=== PATIENT | female | born 1995 | race American Indian/Alaskan Native ===

== ENCOUNTER 2021-02-26 18:11 | Observation (INO) | payer MEDICAID ==
[2021-02-26 19:25] LABS: Bilirubin,Urine NEG (Negative); Blood,Urine NEG (Negative); Color,Urine Yellow (Yellow); Protein,Urine <15 mg/dL mg/dL (Negative); Urobilinogen,Urine < 2.0 mg/dL (<2.0)
[2021-02-26] MEDS ORDERED: LACTATED RINGERS 1,000 ML IV ONE (19:30)
[2021-02-26] MEDS ORDERED: ACETAMINOPHEN 325 MG TAB PO PRN (20:54)
[2021-02-26] MEDS ORDERED: LACTATED RINGERS 1,000 ML IV SCH (21:00)
[2021-02-26] MEDS ORDERED: D5W/LACTATED RINGERS 1,000 ML IV SCH (21:00)
[2021-02-26] MEDS: BUTORPHANOL 2 MG/1 ML INJ IV PRN (21:38)
[2021-02-27] MEDS: BUTORPHANOL 2 MG/1 ML INJ IV PRN ×2 (02:15→07:35)
--- NOTE | 2021-02-27 06:21 | History and Physical Report ---
History of Present Illness Date of examination: 02/27/21 Date of admission: 02/26/21 20:58 Chief complaint: Patient presented overnite with contractions at 37+1 wks. Recently relocated from [place] and medical records are available. History of present illness: , 37+2 wks, TRISHA 03/18/2021. Past History Past Medical History: no pertinent history - Obstetrical History Expected Date of Delivery: 03/18/21 Actual Gestation: 37 Week(s) 2 Day(s) : 1 Para: 0 Medications and Allergies Allergies Allergy/AdvReac Type Severity Reaction Status Date / Time No Known Allergies Allergy Unverified 02/26/21 18:29 Home Medications Medication Instructions Recorded Confirmed Last Taken Type Iron 1 tab PO QDAY 02/26/21 02/26/21 02/26/21 10:00 History Vitamin 1 tab PO QDAY 02/26/21 02/26/21 02/26/21 10:00 History Active Meds: Active Medications Acetaminophen (Acetaminophen 325 Mg Tab) 650 mg PO Q4H PRN PRN Reason: Pain MILD(1-3)/Fever >100.5/LYONS Butorphanol Tartrate (Butorphanol 2 Mg/1 Ml Inj) 2 mg IV Q4H PRN PRN Reason: Labor Pain Last Admin: 02/27/21 02:15 Dose: 2 mg Documented by: Lactated Ringer's (Lactated Ringers) 1,000 mls @ 125 mls/hr IV DIRECT KARISSA Review of Systems All systems: negative Genitourinary: no leakage of fluid - Vital Signs Vital signs: Vital Signs Temp Pulse Resp BP 98.4 F 101 H 20 114/68 02/26/21 18:35 02/26/21 18:35 02/26/21 18:35 02/26/21 18:35 Temp Pulse Resp BP Pulse Ox 98.2 F 94 H 18 103/59 94 02/26/21 21:49 02/26/21 23:25 02/27/21 03:15 02/26/21 21:49 02/26/21 23:25 - Physical Exam Breasts: Positive: deferred Lungs: Positive: Normal air movement Abdomen: Positive: normal appearance, distention Genitourinary (Female): Positive: normal external genitalia, normal perenium Vulva: both: normal Uterus: Positive: enlarged Deep Tendon Reflex Grade: Normal +2 - Obstetrical FHR: category 2 Uterine Contraction Monitor Mode: External Cervical Dilatation: 2.5 Cervical Effacement Percentage: 80 station: 0 Uterine Contraction Frequency (min): irregular Uterine Contraction Pattern: Irregular Uterine Contraction Intensity: Strong/Firm Results All other labs normal. Assessment and Plan - Patient Problems (1) with 37 weeks completed gestation Current Visit: Yes Status: Acute Plan to address problem: Under observation for possible progression to labor.
[2021-02-27 13:20] VITALS: BP 110/78
== END 2021-02-27 13:23 | disposition home or self-care (01) ==
LOC: TRG 18:11 → APU 18:21 → LD 20:58 → TRG 20:58
PROVIDERS: ADMIT Obstetrics & Gynecology; ATTEND Obstetrics & Gynecology
DX: O62.9 Abnormality of forces of labor, unspecified (principal); Z20.822 Contact with and (suspected) exposure to COVID-19; Z3A.37 37 weeks gestation of pregnancy
CPT/HCPCS: 81001; 96374; 96376; G0378; J0595; U0003

== ENCOUNTER 2021-03-11 13:07 | Inpatient (IN) | payer MEDICAID ==
[2021-03-11] MEDS ORDERED: ePHEDrine SULFATE 50 MG/1 ML INJ IV PRN ×2 (13:34→13:59)
[2021-03-11] MEDS ORDERED: OXYTOCIN 10 UNIT/1 ML INJ IM PRN (13:34)
[2021-03-11] MEDS ORDERED: LOPERAMIDE 2 MG CAP PO PRN (13:34)
[2021-03-11] MEDS ORDERED: miSOPROStol 200 MCG TAB PR PRN (13:34)
[2021-03-11] MEDS ORDERED: CARBOPROST TROMETHAMINE 250 MCG/1 ML INJ IM PRN (13:34)
[2021-03-11] MEDS ORDERED: MINERAL OIL 30 ML ORAL LIQD PO PRN (13:34)
[2021-03-11] MEDS ORDERED: TERBUTALINE 1 MG/1 ML INJ SUB-Q PRN (13:34)
[2021-03-11] MEDS ORDERED: METHYLERGONOVINE MALEATE 0.2 MG/ML VIAL IM PRN (13:34)
[2021-03-11] MEDS ORDERED: fentaNYL 100 MCG/2 ML INJ IV PRN (13:42)
[2021-03-11] MEDS ORDERED: BUTORPHANOL 2 MG/1 ML INJ IV PRN ×2 (13:42)
[2021-03-11] MEDS ORDERED: ACETAMINOPHEN 325 MG TAB PO PRN ×2 (13:42→21:30)
[2021-03-11] MEDS ORDERED: NALOXONE 2 MG/2 ML INJ IV PRN (13:59)
--- NOTE | 2021-03-11 13:59 | Anesthesia Consultation ---
Anesthesia Consult and Med Hx Date of service: 03/11/21 - Airway Anesthetic Teeth Evaluation: Good ROM Head & Neck: Adequate Mental/Hyoid Distance: Adequate Mallampati Class: Class II Intubation Access Assessment: Good - Pulmonary Exam CTA: Yes - Cardiac Exam Cardiac Exam: RRR - Pre-Operative Health Status ASA Pre-Surgery Classification: ASA2 Proposed Anesthetic Plan: Epidural - Pulmonary Hx Smoking: No Hx Asthma: No Hx Respiratory Symptoms: No SOB: No COPD: No Home Oxygen Therapy: No Hx Pneumonia: No Hx Sleep Apnea: No - Cardiovascular System Hx Hypertension: No Hx Coronary Artery Disease: No Hx Heart Attack/AMI: No Hx Angina: No Hx Percutaneous Transluminal Coronary Angioplasty (PTCA): No Hx Cardia Arrhythmia: No Hx Pacemaker: No Hx Internal Defibrillator: No Hx Valvular Heart Disease: No Hx Heart Murmur: No Hx Peripheral Vascular Disease: No - Central Nervous System Hx Neuromuscular Disorder: No Hx Seizures: No CVA: No Hx Back Pain: Yes Hx Psychiatric Problems: No - Gastrointestinal Hx Ulcer: No Hx Gastroesophageal Reflux Disease: Yes - Endocrine Hx Renal Disease: No Hx End Stage Renal Disease: No Hx Cirrhosis: No Hx Liver Disease: No Hx Insulin Dependent Diabetes: No Hx Non-Insulin Dependent Diabetes: No Hx Thyroid Disease: No Hx Hypothyroidism: No Hx Hyperthyroidism: No - Hematic Hx Anemia: Yes Hx Sickle Cell Disease: No - Other Systems Hx Alcohol Use: No Hx Substance Use: No Hx Cancer: No Hx Obesity: No
[2021-03-11] MEDS ORDERED: OXYTOCIN DRIP 30 UNITS/500 ML BAG IV SCH ×3 (14:00→21:30)
--- NOTE | 2021-03-11 14:33 | History and Physical Report ---
History of Present Illness Date of examination: 03/11/21 Date of admission: 03/11/21 13:07 Chief complaint: Contractions History of present illness: Termpreg. Started having painful contractions early today. 39wks today. Past History Past Medical History: no pertinent history - Obstetrical History Expected Date of Delivery: 03/18/21 Actual Gestation: 39 Week(s) 0 Day(s) : 1 Para: 0 Medications and Allergies Allergies Allergy/AdvReac Type Severity Reaction Status Date / Time No Known Allergies Allergy Unverified 02/26/21 18:29 Home Medications Medication Instructions Recorded Confirmed Last Taken Type Iron 1 tab PO QDAY 02/26/21 03/11/21 03/11/21 History Vitamin 1 tab PO QDAY 02/26/21 03/11/21 02/26/21 10:00 History Active Meds: Active Medications Acetaminophen (Acetaminophen 325 Mg Tab) 650 mg PO Q4H PRN PRN Reason: Pain, Mild (1-3) Butorphanol Tartrate (Butorphanol 2 Mg/1 Ml Inj) 2 mg IV Q2H PRN PRN Reason: Pain , Severe (7-10) Butorphanol Tartrate (Butorphanol 2 Mg/1 Ml Inj) 1 mg IV Q2H PRN PRN Reason: Pain, Moderate(4-6) LABOR PAIN Carboprost Tromethamine (Carboprost Tromethamine 250 Mcg/1 Ml Inj) 250 mcg IM ONCE PRN PRN Reason: Uterine Bleeding Ephedrine Sulfate (Ephedrine Sulfate 50 Mg/1 Ml Inj) 10 mg IV Q2M PRN PRN Reason: Hypotension Fentanyl (Fentanyl 100 Mcg/2 Ml Inj) 100 mcg IV Q2H PRN PRN Reason: Pain,Severe (7-10) LABOR PAIN Oxytocin/Sodium Chloride (Pitocin/Ns 30 Unit/500ml) 30 units in 500 mls @ 2 mls/hr IV TITR KARISSA; Protocol Lactated Ringer's (Lactated Ringers) 1,000 mls @ 125 mls/hr IV DIRECT KARISSA Oxytocin/Sodium Chloride (Pitocin/Ns 30 Unit/500ml) 30 units in 500 mls @ 40 mls/hr IV TITR KARISSA; Protocol Fentanyl/Bupivacaine/Sodium Chlor (Fentanyl-Bupiv 2 Mcg/Ml-0.125%) 200 mcg in 100 mls @ 12 mls/hr EPIDURAL TITR KARISSA; Protocol Lidocaine (Lidocaine (2%) 20 Mg/1 Ml Vial 20 Ml Mdv) 20 ml INFILTRATI ONCE ONE Stop: 03/11/21 14:35 Loperamide HCl (Loperamide 2 Mg Cap) 2 mg PO ONCE PRN PRN Reason: give with Hemabate Methylergonovine Maleate (Methylergonovine Maleate 0.2 Mg/Ml Vial) 0.2 mg IM ONCE PRN PRN Reason: Uterine Bleeding Mineral Oil (Mineral Oil 30 Ml Oral Liqd) 30 ml PO QHS PRN PRN Reason: Constipation Misoprostol (Misoprostol 200 Mcg Tab) 800 mcg RI ONCE PRN PRN Reason: Uterine Bleeding Naloxone HCl (Naloxone 2 Mg/2 Ml Inj) 0.2 mg IV Q5M PRN PRN Reason: Respiratory sedation Oxytocin (Oxytocin 10 Unit/1 Ml Inj) 10 unit IM ONCE PRN PRN Reason: Uterine Bleeding Terbutaline Sulfate (Terbutaline 1 Mg/1 Ml Inj) 0.25 mg SUB-Q ONCE PRN PRN Reason: Hyperstimulation/Hypertonicity Review of Systems All systems: negative - Physical Exam Breasts: Positive: deferred Lungs: Positive: Normal air movement Abdomen: Positive: normal appearance, distention Genitourinary (Female): Positive: normal external genitalia Vulva: both: normal Vagina: Positive: normal moisture. Negative: discharge Cervix: Negative: lesion, discharge Uterus: Positive: enlarged, normal contour Extremities: Positive: normal Deep Tendon Reflex Grade: Normal +2 - Obstetrical FHR: category 1 Cervical Dilatation: 8 Cervical Effacement Percentage: 100 station: +1 Results All other labs normal. GBS negative Assessment and Plan - Patient Problems (1) Active labor at term Current Visit: Yes Status: Acute Plan to address problem: On admission for the conduct of L&D. Vaginal delivery anticipated.
[2021-03-11] MEDS ORDERED: LIDOCAINE (2%) 20 MG/1 ML VIAL 20 ML MDV INFILTRATI ONE (14:34)
[2021-03-11] MEDS ORDERED: LACTATED RINGERS 1,000 ML IV SCH (14:45)
[2021-03-11] MEDS ORDERED: fentaNYL-BUPIV 2 MCG/ML-0.125% 200 MCG/100 ML BAG EPIDURAL SCH (15:00)
[2021-03-11 15:24] LABS: Hematocrit 39.6 % (30.3-42.9); Hemoglobin 13.5 gm/dl (10.1-14.3); Mean Corpuscular HGB Conc 34 % (30-34); Mean Corpuscular Volume 93 fl (79-97); Platelet Count 231 K/mm3 (140-440); Red Blood Count 4.27 M/mm3 (3.65-5.03); Red Cell Distribution Width 13.3 % (13.2-15.2)
--- NOTE | 2021-03-11 18:45 | Procedure Note ---
OB Delivery Note - Delivery Date of Delivery: 03/11/21 Surgeon: DEBBIE CACERES Estimated blood loss: 200cc - Vaginal Intrapartum events: none Delivery induction: none Delivery augmentation: rupture of membranes, pitocin Delivery monitor: external FHT, external uterine Route of delivery: Delivery placenta: spontaneous, expressed Delivery cord: 3 umbilical vessels Episiotomy: none Delivery laceration: 1st degree, vaginal side wall (left side) Anesthesia: epidural - A at 1 minute: 9 at 5 minutes: 9 Infant Gender: Male
--- NOTE | 2021-03-11 19:03 | Progress Note ---
Labor Epidural - Labor Epidural Start Time: 14:53 Stop Time: 14:58 Performed by:: JAVY ARBOLEDA Procedure: Patient is requesting a laboring epidural for laboring pain. Patient IDed, H&P reviewed, all questions and concerns were answered, and consent was signed. Timeout was performed at bedside. Patient in sitting position. Sterile prep and drape was performed. [3] ml of 1% lidocaine skin wheal at L[3]- L [4]. 18- gauge Mobilitectead epidural needle was advanced to loss of resistance with saline technique 6cm. Negative CSF negative blood. Epidural catheter advanced to [10] centimeters. [NEGATIVE] Aspiration [NEGATIVE] test dose. Sterile dressing applied. Patient tolerated procedure.
[2021-03-11] MEDS ORDERED: PROMETHAZINE 25 MG TAB PO PRN (21:30)
[2021-03-11] MEDS ORDERED: PROMETHAZINE 25 MG RECT SUPP PR PRN (21:30)
[2021-03-11] MEDS ORDERED: LANOLIN/ZINC/DIMETHICONE (LANSINOH) 7 GM TP PRN (21:30)
[2021-03-11] MEDS ORDERED: MAGNESIUM HYDROXIDE (MOM) ORAL LIQD UDC PO PRN (21:30)
[2021-03-11] MEDS ORDERED: diphenhydrAMINE 25 MG CAP PO PRN (21:30)
[2021-03-11] MEDS ORDERED: KETOROLAC 30 MG/1 ML INJ IV PRN (21:30)
[2021-03-11] MEDS ORDERED: HYDROcodone/ACETAMINOPHEN 5-325 MG TAB PO PRN (21:30)
[2021-03-11] MEDS ORDERED: ONDANSETRON 4 MG/2 ML INJ IV PRN (21:30)
[2021-03-11] MEDS ORDERED: WITCH HAZEL/ GLYCERIN PAD TP PRN (21:30)
[2021-03-11] MEDS: IBUPROFEN 600 MG TAB PO SCH (23:21)
--- NOTE | 2021-03-12 03:17 | Post Anesthesia Evaluation ---
- Post Anesthesia Evaluation Patient Participated: Yes Airway Patent: Yes Stable Respiratory Function: Yes Nausea/Vomiting: No Temp > 96.8F: Yes Pain Manageable: Yes Adequeate Hydration: Yes Anesthesia Complications: No Block Receding Appropriately: Yes Patient on Ventilator: No
[2021-03-12] MEDS: IBUPROFEN 600 MG TAB PO SCH ×3 (06:19→18:39)
[2021-03-12 08:09] LABS: Hematocrit 33.2 % (30.3-42.9); Hemoglobin 11.3 gm/dl (10.1-14.3)
--- NOTE | 2021-03-12 10:05 | Progress Note ---
Assessment and Plan - Patient Problems (1) Active labor at term Current Visit: Yes Status: Acute (2) (normal spontaneous vaginal delivery) Current Visit: Yes Status: Acute Plan to address problem: Doing well. Observation will continue. Subjective - Subjective Date of service: 03/12/21 Principal diagnosis: Interval history: Termpreg. Started having painful contractions early today. 39wks today. Patient reports: appetite normal, voiding normally, pain well controlled, ambulating normally [place]: doing well Objective - Vital Signs Latest vital signs: Vital Signs Temp Pulse Resp BP BP Pulse Ox 03/12/21 08:55 18 03/12/21 08:30 97.9 F 97 H 18 113/74 03/12/21 05:07 98.6 F 78 18 102/79 03/12/21 00:52 99.0 F 102 H 18 98/48 95 03/11/21 21:20 98.3 F 87 18 112/69 98 03/11/21 20:43 86 89 03/11/21 20:42 86 98 03/11/21 20:37 83 98 03/11/21 20:32 76 98 03/11/21 20:31 85 116/79 03/11/21 20:27 82 99 03/11/21 20:25 66 93 03/11/21 20:22 65 100 03/11/21 20:17 64 100 03/11/21 20:16 61 117/80 03/11/21 20:12 69 99 03/11/21 20:11 67 87 03/11/21 20:07 67 100 03/11/21 20:04 69 93 03/11/21 20:02 62 130/75 100 03/11/21 19:58 58 L 92 03/11/21 19:57 63 100 03/11/21 19:52 57 L 96 03/11/21 19:47 79 96 03/11/21 19:42 98 H 99 03/11/21 19:37 59 L 98 03/11/21 19:32 71 109/80 100 03/11/21 19:27 78 98 03/11/21 19:22 76 97 03/11/21 19:17 79 97 03/11/21 19:16 77 105/62 03/11/21 19:12 76 98 03/11/21 19:07 77 97 07/20/21 19:02 88 96 07/20/21 19:01 85 98/59 07/20/21 18:57 89 97 07/20/21 18:52 82 99 07/20/21 18:47 79 98 07/20/21 18:46 139 H 117/58 07/20/21 18:45 98.4 F 20/21 18:42 90 97 0720/21 18:37 72 99 0720/21 18:32 76 99 0720/21 18:31 78 122/67 0720/21 18:27 82 100 07/20/21 18:22 83 127/70 100 07/20/21 18:17 90 121/56 100 07/20/21 18:12 86 100 20/21 18:07 96 H 99 20/21 18:02 98 H 98 20/21 17:57 107 H 97 20/21 17:52 101 H 99 20/21 17:50 89 20/21 17:47 108 H 97 20/21 17:42 97 H 98 20/21 17:37 111 H 100 20/21 17:32 116 H 100 20/21 17:27 91 H 100 20/21 17:22 90 100 20/21 17:17 108 H 99 20/21 17:12 96 H 100 20/21 17:07 94 H 100 20/21 17:04 75 106/55 07/20/21 17:02 83 100 /20/21 16:57 75 100 /20/21 16:52 73 100 07/20/21 16:47 80 131/66 100 07/20/21 16:42 76 100 07/20/21 16:37 76 97 07/20/21 16:32 77 101/60 98 07/20/21 16:27 87 96 07/20/21 16:22 81 97 07/20/21 16:17 84 99 07/20/21 16:16 81 116/62 07/20/21 16:13 75 107/64 07/20/21 16:12 81 100 07/20/21 16:11 80 107/64 07/20/21 16:10 77 115/66 07/20/21 16:07 80 94/51 100 07/20/21 16:06 89 101/49 07/20/21 16:02 95 H 98 /20/21 16:01 93 H 115/80 07/20/21 16:00 97.9 F 03/11/ 15:59 71 112/69 07/20/21 15:57 80 115/65 98 /20/21 15:55 71 120/76 0720/21 15:54 87 115/74 0720/21 15:52 85 110/73 99 20/21 15:50 78 105/75 0720/21 15:47 87 110/66 98 20/21 15:45 79 115/70 /20/21 15:43 87 115/67 20/21 15:42 88 99 20/21 15:41 86 116/69 20/21 15:39 85 115/71 0720/21 15:37 86 118/68 98 20/21 15:36 87 111/69 20/21 15:32 82 98 20/21 15:31 78 112/66 20/21 15:29 85 109/64 07/20/21 15:28 82 121/69 07/20/21 15:27 79 97 20/21 15:25 86 109/70 20/21 15:23 90 103/64 07/20/21 15:21 94 H 107/67 20/21 15:19 77 108/63 07/20/21 15:17 88 104/64 07/20/21 15:15 77 110/70 07/20/21 15:13 85 108/71 07/20/21 15:12 85 111/63 /20/21 15:09 77 95/54 07/20/21 15:08 76 100/59 07/20/21 15:06 74 120/65 07/20/21 15:05 88 125/77 20/21 15:03 86 130/77 0720/21 15:01 86 119/68 /20/21 14:59 109 H 123/75 20/21 14:57 87 116/67 20/21 13:45 98.1 F Intake and Output 03/11/12 03/03/12/21 23:59 07:59 15:59 Intake Total 200 200 360 Output Total 300 1400 Balance -100 -1200 360 Intake: Oral 200 200 360 Output: Urine 300 1400 Void 300 1400 Other: Total, Intake Amount 200 200 360 Total, Output Amount 300 800 # Voids Void 1 1 Estimated Blood Loss 200 - Exam Breasts: Present: normal Lungs: Present: Normal air movement Abdomen: Present: normal appearance, soft Uterus: Present: normal, firm Extremities: Present: normal Deep Tendon Reflex Grade: Normal +2 - Labs Labs: Abnormal lab results 03/11/21 Range/Units 13:38 WBC 12.9 H (4.5-11.0) K/mm3
[2021-03-12] MEDS: PRENATAL VIT27-FE FUMARATE-FOLIC ACID VIT TAB PO SCH (11:21)
[2021-03-13] MEDS: IBUPROFEN 600 MG TAB PO SCH ×2 (05:52→13:17)
[2021-03-13] MEDS: PRENATAL VIT27-FE FUMARATE-FOLIC ACID VIT TAB PO SCH (09:45)
--- NOTE | 2021-03-13 12:05 | Progress Note ---
Assessment and Plan - Patient Problems (1) Active labor at term Current Visit: Yes Status: Acute (2) (normal spontaneous vaginal delivery) Current Visit: Yes Status: Acute Plan to address problem: Ready for home. Subjective - Subjective Date of service: 03/13/21 Principal diagnosis: Interval history: Termpreg. Started having painful contractions early today. 39wks today. Patient reports: appetite normal, voiding normally, pain well controlled, ambulating normally [place]: doing well Objective - Vital Signs Latest vital signs: Vital Signs Temp Pulse Resp BP 03/13/21 08:45 97.4 F L 83 20 103/67 03/13/21 00:00 98.6 F 77 16 112/78 03/12/21 20:41 98.6 F 69 16 114/78 03/12/21 16:15 97.8 F 81 20 97/58 03/12/21 13:12 16 03/12/21 12:40 97.6 F 92 H 20 112/68 Intake and Output 03/12/21 03/13/21 03/13/21 23:59 07:59 15:59 Intake Total 740 400 360 Balance 740 400 360 Intake: Oral 440 400 360 Intake, Free Water 300 Other: Total, Intake Amount 120 200 360 # Voids Void 1 1 1 - Exam Breasts: Present: normal Lungs: Present: Normal air movement Abdomen: Present: normal appearance Uterus: Present: normal, firm Deep Tendon Reflex Grade: Normal +2
--- NOTE | 2021-03-13 12:07 | Discharge Summary ---
Providers - Providers Date of Admission: 03/11/21 13:07 Date of discharge: 03/13/21 Attending physician: DEBBIE CACERES MD none Primary care physician: DEBBIE CACERES MD Hospitalization Reason for admission: active labor Delivery: Episiotomy: none Laceration: vaginal side wall (left side) Other procedures: none complications: none baby: male Condition at discharge: Good Disposition: DC-01 TO HOME OR SELFCARE - Discharge Diagnoses (1) Active labor at term Status: Acute (2) (normal spontaneous vaginal delivery) Status: Acute Plan - Provider Discharge Summary Activity: routine, no sex for 6 weeks, no heavy lifting 4 weeks, no strenuous exercise Diet: routine Instructions: routine Additional instructions: [] Smoking cessation referral if applicable(refer to patient education folder for contact #) [] Refer to [facility] Booklet Call your doctor immediately for: * Fever > 100.5 * Heavy vaginal bleeding ( >1 pad per hour) * Severe persistent headache * Shortness of breath * Reddened, hot, painful area to leg or breast * Drainage or odor from incision. * Keep incision clean and dry at all times and follow doctor's instructions regarding bathing/showering - Follow up plan Follow up: DEBBIE CACERES MD [Primary Care Provider] - 7 Days
[2021-03-13 17:11] VITALS: BP 110/81
== END 2021-03-13 16:15 | disposition home or self-care (01) | DRG 775 ==
LOC: LD 13:07 → OB 21:20
PROVIDERS: ADMIT Obstetrics & Gynecology; ATTEND Obstetrics & Gynecology
PROC: 10E0XZZ Delivery of Products of Conception, External Approach (ICD-10-PCS; principal; 2021-03-11)
PROC: 0UQGXZZ Repair Vagina, External Approach (ICD-10-PCS; 2021-03-11)
PROC: 3E0R3BZ Introduction of Anesthetic Agent into Spinal Canal, Percutaneous Approach (ICD-10-PCS; 2021-03-11)
PROC: 00HU33Z Insertion of Infusion Device into Spinal Canal, Percutaneous Approach (ICD-10-PCS; 2021-03-11)
DX: O71.4 Obstetric high vaginal laceration alone (principal); Z37.0 Single live birth; Z20.822 Contact with and (suspected) exposure to COVID-19; Z3A.39 39 weeks gestation of pregnancy; Z79.899 Other long term (current) drug therapy
CPT/HCPCS: 36415; 85014; 85018; 85027; 86592; 86706; 86762; 86850; 86900; 86901; 87806; 99211; G0378; G0463; J2590; J7120; U0003